=== PATIENT | male | born 1980 | race Two or more races ===

== ENCOUNTER 2017-10-01 19:38 | Emergency (ER) | payer SELFPAY ==
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
[2017-10-01] MEDS ORDERED: 0.9 % SODIUM CHLORIDE 1000ML 1,000 ML IV SCH (20:15)
[2017-10-01 20:31] LABS: BASO % 0.2 % (0-6); EOS % 1.7 % (0-6); HEMATOCRIT 43.7 % (42.0-52.0); HEMOGLOBIN 15.3 gm/dl (14.0-18.0); LYMPH % 28.7 % (16-45); MEAN CELL VOLUME 91.4 fl (81-97); MEAN PLATELET VOLUME 10.8 fl (7.4-10.4); MONO % 11.4 % (0-9); PLATELET COUNT 68 K/uL (130-400); RED BLOOD COUNT 4.78 M/uL (4.40-5.70); RED CELL DISTRIBUTION WIDTH 13.4 % (11.5-14.5); WHITE BLOOD COUNT W/O DIFF 4.6 K/uL (4.2-12.2)
[2017-10-01 20:43] LABS: BLOOD UREA NITROGEN 3 mg/dL (6-20)
[2017-10-01 20:44] LABS: CREATININE 0.7 mg/dL (0.7-1.2); EST GLOMERULAR FILTRATION RATE > 60 mL/min; TOTAL PROTEIN 7.9 g/dL (6.6-8.7)
[2017-10-01 20:46] LABS: GLUCOSE,RANDOM 136 mg/dL (74-109)
[2017-10-01 20:49] LABS: ALKALINE PHOSPHATASE 119 U/L (40-129); ALT/SGPT 84 U/L (<41); AST/SGOT 185 U/L (10.0-50.0)
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
== END 2017-10-01 22:16 | disposition home or self-care (01) ==
LOC: ER 19:38
DX: G89.11 Acute pain due to trauma (principal); R51 Headache; M54.5 Low back pain; H53.8 Other visual disturbances; M54.2 Cervicalgia; R42 Dizziness and giddiness; F10.920 Alcohol use, unspecified with intoxication, uncomplicated; Y90.8 Blood alcohol level of 240 mg/100 ml or more; V48.6XXA Car passenger injured in noncollision transport accident in traffic accident, initial encounter
CPT/HCPCS: 99284 ×2; 96360; 85025; 80053; 72125; 71260; 70450; 74177; G0480; Q9967; 80320; J7030